=== PATIENT | female | born 1945 | race Caucasian/White ===

== ENCOUNTER → 2019-06-28 | Outpatient (CLI) | payer BC ==
[~2019-06-28] MED LIST: ALBU90OI INH; ASPI81EC PO; CETI10 PO; CHOL10002 PO; CYAN1000 PO; GLIM4 PO; GLIP10 PO; HYDCHL25 PO; LANS30EC PO; LOSARTAN POTAS100 MG PO; LOVA20 PO; LOVA40 PO; NAPR375 PO; ONGLYZA5 MG PO; OXYACE5T PO; PRAV20 PO; Restoril15 MG PO; SPIR50 PO; TRAM50 PO; Ultram50 MG PO; VALS80 PO; VENL75ER PO
== END | disposition home or self-care (01) ==
LOC: PLD 13:59 → LAB SHORT 13:59
DX: R31.0 Gross hematuria (principal); Z85.51 Personal history of malignant neoplasm of bladder
CPT/HCPCS: 88108; 88305

== ENCOUNTER → 2019-06-28 | Outpatient (CLI) | payer BC ==
[2019-06-28 16:33] LABS: Bilirubin, Urine Neg (Neg); Blood, Urine 5+ (Neg); Glucose Qualitative, Urine Neg (Neg); Ketones, Urine Neg (Neg); Leukocyte Esterase, Urine 1+ (Neg); Nitrite, Urine Neg (Neg); Protein, Urine 2+ (Neg); Specific Gravity, Urine 1.015 (1.003-1.022); Urobilinogen, Urine 1+ (Normal)
[2019-06-28 16:42] LABS: Appearance, Urine Cloudy (Clear); Color, Urine Amber (P-Yellow)
[2019-06-28 16:43] LABS: Red Blood Cells, Urine TNTC /hpf (0-2); Squamous Epithelial Cells Few /hpf (Few)
[2019-06-28 16:44] LABS: Bacteria Few /hpf
== END ==
LOC: LAB 15:55 → LAB SHORT 15:55
PROVIDERS: Family Medicine
DX: C67.9 Malignant neoplasm of bladder, unspecified (principal); R31.9 Hematuria, unspecified
CPT/HCPCS: 81001; 87077; 87086; 87186

== ENCOUNTER 2019-08-27 09:53 | Emergency (ER) | payer BC, OTHER ==
[2019-08-27 10:52] LABS: BASOPHILS ABSOLUTE AUTO 0.03 K/mm3 (0.00-0.23); BASOPHILS PERCENT AUTO 0 % (0-2); EOSINOPHILS ABSOLUTE AUTO 0.12 K/mm3 (0.00-0.68); EOSINOPHILS PERCENT AUTO 1 % (0-6); Hematocrit 43.1 % (33.0-51.0); Hemoglobin 13.8 g/dL (11.5-16.0); IMMATURE GRAN ABSOLUTE AUTO 0.04 K/mm3 (0.00-0.10); IMMATURE GRAN PERCENT AUTO 0 % (0-1); LYMPHOCYTES ABSOLUTE AUTO 1.73 K/mm3 (0.84-5.20); LYMPHOCYTES PERCENT AUTO 19 % (21-46); MONOCYTES ABSOLUTE AUTO 0.63 K/mm3 (0.16-1.47); MONOCYTES PERCENT AUTO 7 % (4-13); Mean Corpuscular HGB 28.2 pg (26.0-34.0); Mean Corpuscular Volume 88 fL (80-100); Mean Platelet Volume 10.5 fL (9.1-12.4); NEUTROPHILS PERCENT AUTO 73 % (41-73); Platelet Count 250 K/mm3 (150-400); RDW Coefficient Variation 16.1 % (11.7-14.2); RDW Standard Deviation 52.1 fL (35.1-46.3); Red Blood Cell Count 4.89 M/mm3 (3.80-5.20); White Blood Cell Count 9.35 K/mm3 (4.00-11.30)
[2019-08-27] MEDS ORDERED: INSULANPEN SC (10:53)
[2019-08-27] MEDS ORDERED: JARDIANCE10 MG PO (10:53)
[2019-08-27] MEDS ORDERED: GABA300 PO (10:53)
[2019-08-27] MEDS ORDERED: LIRA0.6P (10:54)
[2019-08-27] MEDS ORDERED: DIPH50 PO (10:54)
[2019-08-27 11:09] LABS: Alanine Aminotransfer (ALT/SGP 27 U/L (12-78); Albumin, Blood 4.2 g/dL (3.4-5.0); Alk Phos 130 U/L (50-136); Anion Gap 10 mmol/L (6-16); Aspartate Aminotrans (AST/SGOT 25 U/L (12-37); Blood Urea Nitrogen 46 mg/dL (8-24); Bun/Creatinine Ratio 28.8 (12.0-20.0); CO2, Blood 21 mmol/L (21-32); Calcium, Blood 8.8 mg/dL (8.5-10.1); Chloride, Blood 101 mmol/L (98-108); Globulin, Blood 4.4 g/dL (2.2-4.0); Glomerular Filtration Rate 34 (60-); Glucose, Blood 266 mg/dL (70-99); Potassium, Blood 4.6 mmol/L (3.5-5.5); Sodium, Blood 132 mmol/L (136-145); Total Protein, Blood 8.6 g/dL (6.4-8.2); Troponin I <0.015 ng/mL (0.000-0.040)
[2019-08-27 11:10] LABS: Creatine Kinase MB 1.2 ng/mL (0.0-3.6); Creatine Kinase MB Index 1.4 (0.0-4.0)
== END 2019-08-27 13:00 | disposition home or self-care (01) ==
PROVIDERS: Emergency Medicine
DX: R42 Dizziness and giddiness (principal); M79.10 Myalgia, unspecified site; I12.9 Hypertensive chronic kidney disease with stage 1 through stage 4 chronic kidney disease, or unspecified chronic kidney disease; E11.22 Type 2 diabetes mellitus with diabetic chronic kidney disease; N18.9 Chronic kidney disease, unspecified; D63.1 Anemia in chronic kidney disease; K21.9 Gastro-esophageal reflux disease without esophagitis; E78.5 Hyperlipidemia, unspecified; G43.909 Migraine, unspecified, not intractable, without status migrainosus; Z88.8 Allergy status to other drugs, medicaments and biological substances; Z88.5 Allergy status to narcotic agent; Z91.041 Radiographic dye allergy status; Z79.899 Other long term (current) drug therapy; Z79.82 Long term (current) use of aspirin; Z79.51 Long term (current) use of inhaled steroids

== ENCOUNTER 2022-03-16 09:06 | Day surgery (SDC) | payer BC ==
[~2022-03-16] VITALS: Ht 175.3 cm; Wt 92.6 kg
[~2022-03-16 09:06] MED LIST changes: +DIPH50 PO; +GABA300 PO; +INSULANPEN SC; +JARDIANCE10 MG PO; +LIRA0.6P
[2022-03-16] MEDS ORDERED: OZEMPIC2 MG/0.75 (09:24)
--- NOTE | 2022-03-16 09:32 | NUR ---
03/16/22 0932 Rick Arana IN THE RIGHT EYE AT 0925 AND ALISHA AT 0928. CALL LIGHT TERRY ROMO.
== END 2022-03-16 10:51 | disposition home or self-care (01) ==
LOC: ORSCSDS 09:06
PROVIDERS: Student in an Organized Health Care Education/Training Program
PROC: 08RJ3JZ Replacement of Right Lens with Synthetic Substitute, Percutaneous Approach (ICD-10-PCS; principal; 2022-03-16 10:30)
DX: H25.13 Age-related nuclear cataract, bilateral (principal); E11.22 Type 2 diabetes mellitus with diabetic chronic kidney disease; I12.9 Hypertensive chronic kidney disease with stage 1 through stage 4 chronic kidney disease, or unspecified chronic kidney disease; N18.2 Chronic kidney disease, stage 2 (mild); Z87.891 Personal history of nicotine dependence; Z85.51 Personal history of malignant neoplasm of bladder; Z79.82 Long term (current) use of aspirin; Z79.4 Long term (current) use of insulin; Z79.899 Other long term (current) drug therapy
CPT/HCPCS: 82947; J2001; J2250; J3010; J7040; V2632

== ENCOUNTER 2022-03-30 07:39 | Day surgery (SDC) | payer BC ==
[~2022-03-30] VITALS: Ht 175.3 cm; Wt 91.9 kg
[~2022-03-30 07:39] MED LIST changes: +OZEMPIC2 MG/0.75
--- NOTE | 2022-03-30 08:09 | NUR ---
03/30/22 0809 Rick Arana IN AT 0757 ALISHA IN AT 0754
== END 2022-03-30 09:50 | disposition home or self-care (01) ==
LOC: ORSCSDS 07:39
PROVIDERS: Student in an Organized Health Care Education/Training Program
PROC: 08DK3ZZ Extraction of Left Lens, Percutaneous Approach (ICD-10-PCS; principal; 2022-03-30 09:00)
DX: H25.12 Age-related nuclear cataract, left eye (principal); I12.9 Hypertensive chronic kidney disease with stage 1 through stage 4 chronic kidney disease, or unspecified chronic kidney disease; E11.22 Type 2 diabetes mellitus with diabetic chronic kidney disease; N18.30 Chronic kidney disease, stage 3 unspecified; Z87.891 Personal history of nicotine dependence; Z79.82 Long term (current) use of aspirin; Z79.899 Other long term (current) drug therapy
CPT/HCPCS: 82947; J2001; J2250; J3010; J7040; V2632

== ENCOUNTER 2024-05-07 10:42 | Day surgery (SDC) | payer MEDICARE, BC ==
[~2024-05-07] VITALS: Ht 175.3 cm; Wt 88.3 kg
[~2024-05-07 10:42] MED LIST changes: +Lactated Ringer's 1,000 ML IV ONE
[2024-05-07] MEDS ORDERED: CeFAZolin Sodium 2,000 MG VIAL ONE ×2 (10:51→12:51)
[2024-05-07] MEDS ORDERED: NS 50 ML IV ONE (12:52)
[2024-05-07] MEDS ORDERED: NS 1,000 ML IV ONE (12:52)
[2024-05-07] MEDS ORDERED: Lidocaine 1%-Epineph 1:100000 20 ML MDV ONE (13:01)
[2024-05-07] MEDS ORDERED: NS 500 ML IV ONE (13:30)
[2024-05-07 15:05] VITALS: BP 130/74
== END 2024-05-07 15:08 | disposition home or self-care (01) ==
LOC: ORSCSDS 10:42
PROVIDERS: Orthopaedic Surgery
PROC: 01N50ZZ Release Median Nerve, Open Approach (ICD-10-PCS; principal; 2024-05-07 11:45)
PROC: 0LN70ZZ Release Right Hand Tendon, Open Approach (ICD-10-PCS; 2024-05-07 11:45)
DX: G56.01 Carpal tunnel syndrome, right upper limb (principal); M65.321 Trigger finger, right index finger; I25.2 Old myocardial infarction; I12.9 Hypertensive chronic kidney disease with stage 1 through stage 4 chronic kidney disease, or unspecified chronic kidney disease; J44.9 Chronic obstructive pulmonary disease, unspecified; E11.22 Type 2 diabetes mellitus with diabetic chronic kidney disease; N18.9 Chronic kidney disease, unspecified; K21.9 Gastro-esophageal reflux disease without esophagitis; F32.A Depression, unspecified; Z87.891 Personal history of nicotine dependence; Z79.85 Long-term (current) use of injectable non-insulin antidiabetic drugs; Z79.82 Long term (current) use of aspirin; Z79.4 Long term (current) use of insulin; Z79.899 Other long term (current) drug therapy
CPT/HCPCS: 82947; J0690; J7030; J7120